=== PATIENT | female | born 1945 | race Caucasian/White ===

== ENCOUNTER 2017-07-24 10:59 | Emergency (ER) | payer OTHER ==
[2017-07-24] MEDS ORDERED: FENTANYL CITR 100 MCG/2 ML ONE (11:15)
[2017-07-24] MEDS ORDERED: ONDANSETRON 4 MG/2 ML VIAL ONE (11:15)
[2017-07-24] MEDS ORDERED: PROPOFOL 0 MG/0 ML VIAL IV ONE (11:15)
[2017-07-24] MEDS ORDERED: PROPOFOL 200 MG/20 ML VIAL IV ONE (11:16)
[2017-07-24] MEDS ORDERED: NA CHLORIDE 0.9% 1,000 ML ONE (11:50)
--- NOTE | 2017-07-24 12:04 | RAD REPORT ---
EXAM DESCRIPTION: Shoulder Right 2 View - 07/24/2017 11:32 am CLINICAL HISTORY: Shoulder pain, dislocation COMPARISON: None. TECHNIQUE: Internal and external rotation views of the right shoulder were obtained. FINDINGS: There is humeral head dislocation medial and inferior to the glenoid. This is a classic lo cation for anterior dislocation. No humeral head fracture or deformity seen. No fracture or deformity of the bony glenoid. AC joint is normal. IMPRESSION: Anterior dislocation of the humeral head. No fracture identified.
--- NOTE | 2017-07-24 12:44 | RAD REPORT ---
EXAM DESCRIPTION: RAD - Shoulder 1 View - 07/24/2017 12:22 pm CLINICAL HISTORY: Right shoulder pain FINDINGS: The previously described dislocation appears reduced. No fracture is seen
--- NOTE | 2017-07-24 12:53 | EDPHYS ---
Physician Documentation [facility] Name: Cleopatra Kwan Age: 71 yrs Sex: Female : 1945 Arrival Date: 07/24/2017 Time: 10:59 Bed 4 Private MD: ED Physician Brooks Rosario HPI: 07/24 13:48 This 71 yrs old Female presents to ER via EMS with complaints of Right kdr Shoulder Injury. 13:48 The patient or guardian complains of decreased range of motion, deformity, pain, that kdr is acute, swelling, tenderness, weakness. right shoulder. Context: The problem was sustained at home, resulted from a fall, while walking, The patient experiences decreased range of motion, The patient notes a deformity, an anterior fullness, a deltoid step-off. Onset: The symptoms/episode began/occurred suddenly, just prior to arrival. Modifying factors: the symptoms are alleviated by nothing. The symptoms are aggravated by movement, rotation of arm. Associated signs and symptoms: The patient has no apparent associated signs or symptoms. Severity of symptoms: At their worst the symptoms were moderate, severe, just prior to arrival, in the emergency department the symptoms are unchanged. Treatment prior to arrival includes: no previous treatment. The patient has not experienced similar symptoms in the past. The patient has not recently seen a physician. Historical: - Allergies: 11:04 amoxicillin trihydrate; hj 11:04 potassium clavulanate; hj - Home Meds: 11:04 pregabalin Oral 1 cap every 8 hours [Active]; senna 8.6 mg Oral cap 2 caps once daily hj [Active]; - PMHx: 11:04 None; hj - PSHx: 11:04 Appendectomy; R leg surgery; hj - Immunization history:: Adult Immunizations up to date. - Social history:: Smoking status: Patient/guardian denies using tobacco, Patient/guardian denies using alcohol. - Ebola Screening: : Patient negative for fever greater than or equal to 101.5 degrees Fahrenheit, and additional compatible Ebola Virus Disease symptoms Patient denies exposure to infectious person Patient denies travel to an Ebola-affected area in the 21 days before illness onset. ROS: 13:48 Constitutional: Negative for fever, chills, and weight loss, Eyes: Negative for injury, kdr pain, redness, and discharge, ENT: Negative for injury, pain, and discharge, Neck: Negative for injury, pain, and swelling. 13:48 Neuro: Negative for headache, weakness, numbness, tingling, and seizure activity. Psych: Negative for depression, anxiety, suicide ideation, homicidal ideation, and hallucinations. 13:48 Skin: Positive for abrasion(s), of the right knee. Exam: 13:50 Constitutional: This is a well developed, well nourished patient who is awake, alert, kdr and in no acute distress. Head/Face: Normocephalic, atraumatic. Eyes: Pupils equal round and reactive to light, extra-ocular motions intact. Lids and lashes normal. Conjunctiva and sclera are non-icteric and not injected. Cornea within normal limits. Periorbital areas with no swelling, redness, or edema. Neck: Trachea midline, no thyromegaly or masses palpated, and no cervical lymphadenopathy. Supple, full range of motion without nuchal rigidity, or vertebral point tenderness. No Meningismus. Chest/axilla: Normal chest wall appearance and motion. Nontender with no deformity. No lesions are appreciated. Cardiovascular: Regular rate and rhythm with a normal S1 and S2. No gallops, murmurs, or rubs. Normal PMI, no JVD. No pulse deficits. Respiratory: Lungs have equal breath sounds bilaterally, clear to auscultation and percussion. No rales, rhonchi or wheezes noted. No increased work of breathing, no retractions or nasal flaring. 13:50 Musculoskeletal/extremity: Extremities: all appear grossly normal, with no appreciated pain with palpation, noted in the anterior aspect of right shoulder and posterior aspect of right shoulder: decreased ROM, pain, swelling, tenderness, Circulation is intact in all extremities. Sensation intact. Joints: All joints are normal except the right shoulder displays deformity, dislocation, limited range of motion, pain at rest. Vital Signs: 11:07 BP 131 / 61; Pulse 79; Resp 18; Temp 98.1(TE); Pulse Ox 99% on R/A; Weight 54.88 kg; hj Height 5 ft. 4 in. (162.56 cm); Pain 7/10; 12:00 BP 136 / 78; Pulse 79; Resp 18; Pulse Ox 100% on R/A; hj 13:02 BP 128 / 53; Pulse 61; Resp 18; Pulse Ox 100% on R/A; hj 14:33 BP 122 / 67; Pulse 65; Resp 18; Pulse Ox 100% on R/A; hj 11:07 Body Mass Index 20.77 (54.88 kg, 162.56 cm) hj Procedures: 13:50 Splinting: using Shoulder immobilizer. applied by myself. tech. nurse. Moderate kdr sedation: Pre-procedure assessment: the patient has been NPO 2 hour(s) prior to arrival, ASA physical classification: I - healthy, no underlying organic disease, Airway assessment: able to hyperextend neck, Mallampati classification of tongue size: II - faucial pillars and soft palate can be visualized, but uvula is masked by the base of the tongue, Monitoring during procedure: school lunch monitor, continuous pulse oximetry, nurse at bedside at all times, Medications employed: Fentanyl, Propofol, Post-procedure assessment: the patient is mildly sedated. MDM: 12:53 Patient medically screened. kdr 13:54 Data reviewed: vital signs, nurses notes, radiologic studies. kdr 07/24 11:06 Order name: Shoulder Right (2 View) XRAY; Complete Time: 12:09 kdr 07/24 12:21 Order name: Shoulder 1 View; Complete Time: 12:52 EDMS 07/24 13:00 Order name: Humerus Right XRAY kdr Administered Medications: 11:09 Drug: fentaNYL (PF) 50 mcg Route: IVP; Site: left antecubital; hj 13:03 Follow up: Response: No adverse reaction; Pain is decreased hj 11:09 Drug: Zofran 4 mg Route: IVP; Site: left antecubital; hj 13:03 Follow up: Response: Nausea is decreased hj 11:34 Drug: fentaNYL (PF) 50 mcg Route: IVP; Site: left antecubital; hj 13:04 Follow up: Response: No adverse reaction; Pain is decreased hj 12:00 Drug: Propofol 130 mg Route: IVP; Site: left antecubital; hj 13:04 Follow up: Response: No adverse reaction hj 13:01 Drug: Redfox 10 mg-325 mg 1 tabs Route: PO; aj 13:04 Follow up: Response: No adverse reaction; Pain is decreased hj Disposition: 07/24/17 12:53 Discharged to Home. Impression: Other dislocation of right shoulder joint, Unspecified dislocation of right shoulder joint. - Condition is Stable. - Discharge Instructions: Shoulder Dislocation, [id number]. - Prescriptions for Tylenol- Codeine #3 300-30 mg Oral Tablet - take 2 tablets by ORAL route every 4-6 hours As needed You may take one or two tablets every four to six hours as needed for pain; 16 tablet. - Medication Reconciliation Form, Thank You Letter, Prescription Opioid Use form. - Follow up: Private Physician; When: 2 - 3 days; Reason: If symptoms return, Further diagnostic work-up, Recheck today's complaints, Continuance of care, Re-evaluation by your physician. - Problem is new. - Symptoms have improved. - Notes: You may need a CT or MRI of your arm if you continue to have pain. Critical care time excluding procedures: 13:54 Critical care time: Bedside Care: 30 minutes, Family Intervention: 10 minutes. Total kdr time: 40 minutes Signatures: Dispatcher [employer] [facility] Stefany Rm RN RN aj Rittger, Kevin, MD MD kdr Joaquin, Henry, RN RN hj Corrections: (The following items were deleted from the chart) 12:21 12:11 Shoulder Right 2 View+RAD.[email or web address].[email or web address] ordered. [facility] 14:34 12:53 07/24/2017 12:53 Discharged to Home. Impression: Other dislocation of right hj shoulder joint; Unspecified dislocation of right shoulder joint. Condition is Stable. Forms are Medication Reconciliation Form, Thank You Letter, Antibiotic Education, Prescription Opioid Use. Follow up: Private Physician; When: 2 - 3 days; Reason: If symptoms return, Further diagnostic work-up, Recheck today's complaints, Continuance of care, Re-evaluation by your physician. Problem is new. Symptoms have improved. kdr
--- NOTE | 2017-07-24 12:53 | ER ---
Nurse's Notes [facility] Name: Cleopatra Kwan Age: 71 yrs Sex: Female : 1945 Arrival Date: 07/24/2017 Time: 10:59 Bed 4 Private MD: Diagnosis: Other dislocation of right shoulder joint;Unspecified dislocation of right shoulder joint Presentation: 07/24 10:59 Presenting complaint: EMS states: was walking along [address] when pt tripped on her legs and fell and possibly dislocated her shoulder, denies hitting head or LOC; happened 15 mins FERRULER; complaints of R shoulder pain, L wrist pain and R knee pain; V/S BP- 122/63; HR- 85; bilateral pulses on upper extremities palpable and bounding;. Transition of care: patient was not received from another setting of care. Onset of symptoms was July 24, 2017. Risk Assessment: Do you want to hurt yourself or someone else? Patient reports no desire to harm self or others. Initial Sepsis Screen: Does the patient meet any 2 criteria? No. Patient's initial sepsis screen is negative. Does the patient have a suspected source of infection? No. Patient's initial sepsis screen is negative. Care prior to arrival: None. 10:59 Method Of Arrival: EMS: [facility] 10:59 Acuity: CHAD 4 hj Triage Assessment: 11:05 General: Appears in no apparent distress. uncomfortable, Behavior is calm, cooperative, hj appropriate for age. Pain: Complains of pain in anterior aspect of right shoulder. EENT: No signs and/or symptoms were reported regarding the EENT system. Neuro: Level of Consciousness is awake, alert, obeys commands, Oriented to person, place, time, situation, Appropriate for age. Cardiovascular: Capillary refill < 3 seconds Patient's skin is warm and dry. Respiratory: Airway is patent Respiratory effort is even, unlabored, Respiratory pattern is symmetrical. GI: No signs and/or symptoms were reported involving the gastrointestinal system. : No signs and/or symptoms were reported regarding the genitourinary system. Derm: No signs and/or symptoms reported regarding the dermatologic system. Musculoskeletal: Reports pain in anterior aspect of right shoulder, L wrist, R knee. Injury Description: Abrasion. Historical: - Allergies: 11:04 amoxicillin trihydrate; hj 11:04 potassium clavulanate; hj - Home Meds: 11:04 pregabalin Oral 1 cap every 8 hours [Active]; senna 8.6 mg Oral cap 2 caps once daily hj [Active]; - PMHx: 11:04 None; hj - PSHx: 11:04 Appendectomy; R leg surgery; hj - Immunization history:: Adult Immunizations up to date. - Social history:: Smoking status: Patient/guardian denies using tobacco, Patient/guardian denies using alcohol. - Ebola Screening: : Patient negative for fever greater than or equal to 101.5 degrees Fahrenheit, and additional compatible Ebola Virus Disease symptoms Patient denies exposure to infectious person Patient denies travel to an Ebola-affected area in the 21 days before illness onset. Screenin:05 Abuse screen: Denies threats or abuse. Denies injuries from another. Nutritional hj screening: No deficits noted. Tuberculosis screening: No symptoms or risk factors identified. Fall Risk Fall in past 12 months (25 points). Assessment: 11:04 General: Appears in no apparent distress. uncomfortable, Behavior is calm, cooperative, hj appropriate for age. Pain: Complains of pain in right arm and anterior aspect of right shoulder. Neuro: Level of Consciousness is awake, alert, obeys commands, Oriented to person, place, time, situation, Appropriate for age. Cardiovascular: Capillary refill < 3 seconds Patient's skin is warm and dry. Respiratory: Airway is patent Respiratory effort is even, unlabored, Respiratory pattern is regular, symmetrical. GI: No signs and/or symptoms were reported involving the gastrointestinal system. : No signs and/or symptoms were reported regarding the genitourinary system. EENT: No signs and/or symptoms were reported regarding the EENT system. Derm: No signs and/or symptoms reported regarding the dermatologic system. Musculoskeletal: Reports pain in right arm and anterior aspect of right shoulder. 12:00 Reassessment: Patient and/or family updated on plan of care and expected duration. Pain hj level reassessed. Patient is alert, oriented x 3, equal unlabored respirations, skin warm/dry/pink. for R shoulder closed reduction;. 12:10 Reassessment: consent signed; pt prepped; medicated with propofol as ordered;. hj Reassessment: Patient and/or family updated on plan of care and expected duration. Pain level reassessed. Patient is alert, oriented x 3, equal unlabored respirations, skin warm/dry/pink. pt tolerated the procedure; post anesthetic monitoring in paper;. 13:02 Reassessment: Patient and/or family updated on plan of care and expected duration. Pain hj level reassessed. Patient is alert, oriented x 3, equal unlabored respirations, skin warm/dry/pink. Patient states feeling better. Patient states symptoms have improved. Vital Signs: 11:07 BP 131 / 61; Pulse 79; Resp 18; Temp 98.1(TE); Pulse Ox 99% on R/A; Weight 54.88 kg; hj Height 5 ft. 4 in. (162.56 cm); Pain 7/10; 12:00 BP 136 / 78; Pulse 79; Resp 18; Pulse Ox 100% on R/A; hj 13:02 BP 128 / 53; Pulse 61; Resp 18; Pulse Ox 100% on R/A; hj 14:33 BP 122 / 67; Pulse 65; Resp 18; Pulse Ox 100% on R/A; hj 11:07 Body Mass Index 20.77 (54.88 kg, 162.56 cm) ED Course: 10:59 Patient arrived in ED. hj 10:59 Brooks Rosario MD is Attending Physician. kdr 11:02 Triage completed. hj 11:07 Arm band placed on left wrist. hj 11:07 Patient has correct armband on for positive identification. Bed in low position. Call hj light in reach. Side rails up X2. 11:08 Inserted saline lock: 20 gauge in left antecubital area, using aseptic technique. Blood aj collected. 11:09 Roel Owens, DARRYL is Primary Nurse. hj 11:31 X-ray completed. Portable x-ray completed in exam room. Patient tolerated procedure jb2 well. 11:32 Shoulder Right (2 View) XRAY In Process Unspecified. EDMS 12:19 X-ray completed. Portable x-ray completed in exam room. Patient tolerated procedure mh1 well. 12:21 Shoulder 1 View In Process Unspecified. EDMS 13:31 Humerus Right XRAY In Process Unspecified. EDMS 14:32 No provider procedures requiring assistance completed. IV discontinued, intact, hj bleeding controlled, No redness/swelling at site. Pressure dressing applied. Administered Medications: 11:09 Drug: fentaNYL (PF) 50 mcg Route: IVP; Site: left antecubital; hj 13:03 Follow up: Response: No adverse reaction; Pain is decreased hj 11:09 Drug: Zofran 4 mg Route: IVP; Site: left antecubital; hj 13:03 Follow up: Response: Nausea is decreased hj 11:34 Drug: fentaNYL (PF) 50 mcg Route: IVP; Site: left antecubital; hj 13:04 Follow up: Response: No adverse reaction; Pain is decreased hj 12:00 Drug: Propofol 130 mg Route: IVP; Site: left antecubital; hj 13:04 Follow up: Response: No adverse reaction hj 13:01 Drug: Struthers 10 mg-325 mg 1 tabs Route: PO; aj 13:04 Follow up: Response: No adverse reaction; Pain is decreased Outcome: 12:53 Discharge ordered by MD. kdr 14:33 Discharged to home via wheelchair, with family. hj 14:33 Condition: stable 14:33 Discharge instructions given to patient, family, Instructed on discharge instructions, follow up and referral plans. medication usage, Demonstrated understanding of instructions, follow-up care, medications, Prescriptions given X 1. 14:34 Patient left the ED. Signatures: Dispatcher [employer] EDMS Stefany Rm RN RN aj Rittger, Kevin, MD MD kdr Buechter, Jesse jb2 Harvey, Martha 1 Roel Owens RN RN Corrections: (The following items were deleted from the chart) 11:08 10:59 Presenting complaint: EMS states: was walking along [facility] [facility] [address] when pt tripped on hj her legs and fell and possibly dislocated her shoulder, denies hitting head or LOC; happened 15 mins FERRULER; V/S BP- 122/63; HR- 85; bilateral pulses on upper extremities palpable and bounding; hj 12:15 12:00 Propofol 100 mg IVP in left antecubital hj hj
[2017-07-24] MEDS ORDERED: HYDROCODONE/APAP 10/325 TAB ONE (13:01)
--- NOTE | 2017-07-24 13:49 | RAD REPORT ---
EXAM DESCRIPTION: RAD - Humerus Right - 07/24/2017 1:31 pm CLINICAL HISTORY: Shoulder dislocation with subsequent reduction and persistent pain COMPARISON: July 24 post reduction film, July 24 initial assessment FINDINGS: Humeral head remains normally positioned. Acromial humeral joint space is normal. No AC kierra int abnormality identified. No glenoid fracture seen and no bony defect of the humeral head identifia ble on plain film. More distally shaft of the humerus and lateral view of the elbow joint are unremar kable. No foreign body or other soft tissue abnormality. IMPRESSION: Post reduction right shoulder imaging shows no suspicious or unexpected finding.
== END 2017-07-24 14:34 | disposition home or self-care (01) ==
LOC: ER 10:59
PROC: 2W3AXYZ Immobilization of Right Upper Arm using Other Device (ICD-10-PCS; principal; 2017-07-24)
DX: S43.004A Unspecified dislocation of right shoulder joint, initial encounter (principal); S80.211A Abrasion, right knee, initial encounter; Z88.1 Allergy status to other antibiotic agents; Z88.8 Allergy status to other drugs, medicaments and biological substances; W01.0XXA Fall on same level from slipping, tripping and stumbling without subsequent striking against object, initial encounter; Y92.480 Sidewalk as the place of occurrence of the external cause
CPT/HCPCS: 29799; 73020; 73030; 73060; 96374; 96375; 99285; J2405; J3010; J7030

== ENCOUNTER 2019-03-24 11:29 | Observation (INO) | payer OTHER ==
[2019-03-24] MEDS ORDERED: ASPIRIN 81 MG CHEWABLE TABLET ONE (12:29)
[2019-03-24] MEDS ORDERED: NA CHLORIDE 0.9% 1,000 ML ONE (12:30)
[2019-03-24] MEDS ORDERED: FAMOTIDINE 20 MG/2 ML VIAL IV ONE (12:30)
[2019-03-24 12:38] LABS: Absolute Lymphocytes (CBC) 1.9 K/uL (0.7-4.9); Basophils % 0.4 % (0-1.3); Hematocrit 42.6 % (36.0-45.0); Lymphocytes % 22.2 % (15.3-44.8); MPV 8.3 fL (7.6-11.3); RBC Red Blood Cell Count 4.45 M/uL (3.86-4.86)
[2019-03-24 12:41] LABS: Protime INR 0.89
[2019-03-24 12:55] LABS: ALT/SGPT 22 U/L (12-78); AST/SGOT 24 U/L (15-37); Albumin 4.1 g/dL (3.4-5.0); Alkaline Phosphatase 97 U/L (45-117); BUN Blood Urea Nitrogen 11 mg/dL (7-18); Bicarbonate 25 mmol/L (21-32); Bilirubin Direct 0.1 mg/dL (0-0.2); Bilirubin Total 0.5 mg/dL (0.2-1.0); Glucose Level 91 mg/dL (74-106); Lipase 82 U/L (73-393); Magnesium 2.4 mg/dL (1.8-2.4); NT PRO-BNP 112 pg/mL (<125); Protein, Total 7.1 g/dL (6.4-8.2); Sodium Level 138 mmol/L (136-145); Troponin (Emerg Dept Use Only) < 0.02 ng/mL (0.0-0.045)
--- NOTE | 2019-03-24 13:03 | RAD REPORT ---
EXAM DESCRIPTION: RAD - Chest Single View - 03/24/2019 12:55 pm CLINICAL HISTORY: CHEST PAIN Chest pain. COMPARISON: Chest Single View dated 11/22/2016 FINDINGS: Portable technique limits examination quality. The lungs are grossly clear. The heart is normal in size. No displaced fractures. IMPRESSION: No acute intrathoracic process suspected.
--- NOTE | 2019-03-24 13:28 | RAD REPORT ---
EXAM DESCRIPTION: CT - Angio Aorta For Dissection - 03/24/2019 1:10 pm CLINICAL HISTORY: . Chest and abdominal pain COMPARISON: None TECHNIQUE: Computed tomography angiography of the chest, abdomen pelvis were obtained. 100 cc Isovue 370 was administered intravenously. Coronal and sagittal reconstruction were performed. MIP 3D reconstruction was performed All CT scans are performed using dose optimization technique as appropriate and may include automated exposure control or mA/KV adjustment according to patient size. FINDINGS: An aortic dissection is not seen. An aortic aneurysm is not displayed. The celiac, SMA and ALFREDA are patent . A lung consolidation is not present. A pericardial effusion is not seen. A pleural effusion is not n oted. The liver,spleen, pancreas adrenals kidneys demonstrate no significant abnormality. The gallbladder is distended. Gallbladder wall is thickened. IMPRESSION: Negative for an aortic dissection. Distended gallbladder with a thickened wall probably indicating cholecystitis
--- NOTE | 2019-03-24 13:29 | RAD REPORT ---
EXAM DESCRIPTION: US - Abdomen Exam Limited - 03/24/2019 1:02 pm CLINICAL HISTORY: Abdominal pain. COMPARISON: None. FINDINGS: The gallbladder is distended. The wall is mildly thickened. Septation seen. Small echogeni c structure probably stone. The biliary tree is normal caliber IMPRESSION: Cholelithiasis Distended gallbladder with a thickened wall probably cholecystitis
--- NOTE | 2019-03-24 13:30 | EDPHYS ---
Physician Documentation [facility] Name: Cleopatra Kwan Age: 73 yrs Sex: Female : 1945 Arrival Date: 03/24/2019 Time: 11:31 Bed 16 Private MD: Carlos Busch ED Physician Selvin Guillen HPI: 03/24 12:08 This 73 yrs old Female presents to ER via Ambulatory with complaints of Chest blaise Pain, Back Pain, Shoulder Pain. 12:08 The patient or guardian reports chest pain that is located primarily in the substernal blaise area, epigastric area, anterior chest wall. Onset: 2 day(s) ago. The pain radiates to the right shoulder, Associated signs and symptoms: The patient has no apparent associated signs or symptoms. The chest pain is described as a heaviness, a pressure. Severity of pain: At its worst the pain was mild moderate in the emergency department the pain is unchanged. The patient has not experienced similar symptoms in the past. Historical: - Allergies: 15:24 amoxicillin trihydrate; bp 15:24 potassium clavulanate; bp - Home Meds: 15:24 pregabalin Oral 1 cap every 8 hours [Active]; senna 8.6 mg Oral cap 2 caps once daily bp [Active]; - PSHx: 11:37 Appendectomy; R leg surgery; ss - Immunization history:: Adult Immunizations up to date. - Coronavirus screen:: The patient has NOT traveled to [place] in the past 14 days. Proceed with normal triage process as indicated. - Social history:: Smoking status: Patient denies any tobacco usage or history of. - Family history:: not pertinent. - Ebola Screening: : Patient denies exposure to infectious person Patient denies travel to an Ebola-affected area in the 21 days before illness onset. ROS: 12:08 Constitutional: Negative for fever, chills, and weight loss, Eyes: Negative for injury, blaise pain, redness, and discharge, ENT: Negative for injury, pain, and discharge, Neck: Negative for injury, pain, and swelling, Respiratory: Negative for shortness of breath, cough, wheezing, and pleuritic chest pain, Abdomen/GI: Negative for abdominal pain, nausea, vomiting, diarrhea, and constipation, Back: Negative for injury and pain, : Negative for injury, bleeding, discharge, and swelling, MS/Extremity: Negative for injury and deformity, Skin: Negative for injury, rash, and discoloration, Neuro: Negative for headache, weakness, numbness, tingling, and seizure, Psych: Negative for depression, anxiety, suicide ideation, homicidal ideation, and hallucinations, Allergy/Immunology: Negative for hives, rash, and allergies, Endocrine: Negative for neck swelling, polydipsia, polyuria, polyphagia, and marked weight changes, Hematologic/Lymphatic: Negative for swollen nodes, abnormal bleeding, and unusual bruising. 12:08 Cardiovascular: Positive for chest pain. 12:08 Abdomen/GI: Positive for abdominal pain, of the right upper quadrant. Exam: 12:08 Constitutional: This is a well developed, well nourished patient who is awake, alert, blaise and in no acute distress. Head/Face: Normocephalic, atraumatic. Eyes: Pupils equal round and reactive to light, extra-ocular motions intact. Lids and lashes normal. Conjunctiva and sclera are non-icteric and not injected. Cornea within normal limits. Periorbital areas with no swelling, redness, or edema. ENT: Nares patent. No nasal discharge, no septal abnormalities noted. Tympanic membranes are normal and external auditory canals are clear. Oropharynx with no redness, swelling, or masses, exudates, or evidence of obstruction, uvula midline. Mucous membranes moist. Neck: Trachea midline, no thyromegaly or masses palpated, and no cervical lymphadenopathy. Supple, full range of motion without nuchal rigidity, or vertebral point tenderness. No Meningismus. Chest/axilla: Normal chest wall appearance and motion. Nontender with no deformity. No lesions are appreciated. Cardiovascular: Regular rate and rhythm with a normal S1 and S2. No gallops, murmurs, or rubs. Normal PMI, no JVD. No pulse deficits. Respiratory: Lungs have equal breath sounds bilaterally, clear to auscultation and percussion. No rales, rhonchi or wheezes noted. No increased work of breathing, no retractions or nasal flaring. Back: No spinal tenderness. No costovertebral tenderness. Full range of motion. Female : Normal external genitalia. Skin: Warm, dry with normal turgor. Normal color with no rashes, no lesions, and no evidence of cellulitis. MS/ Extremity: Pulses equal, no cyanosis. Neurovascular intact. Full, normal range of motion. Neuro: Awake and alert, GCS 15, oriented to person, place, time, and situation. Cranial nerves II-XII grossly intact. Motor strength 5/5 in all extremities. Sensory grossly intact. Cerebellar exam normal. Normal gait. Psych: Awake, alert, with orientation to person, place and time. Behavior, mood, and affect are within normal limits. 12:08 Abdomen/GI: Inspection: abdomen appears normal, Bowel sounds: normal, Palpation: mild abdominal tenderness, in the right upper quadrant. Vital Signs: 11:37 BP 177 / 88; Pulse 108; Resp 16; Temp 98.7(TE); Pulse Ox 97% on R/A; Weight 54.43 kg; ss Height 5 ft. 4 in. (162.56 cm); Pain 5/10; 12:52 BP 144 / 82; Pulse 94; Resp 16; Pulse Ox 99% ; bp 13:45 BP 139 / 69; Pulse 83; Resp 18 S; Pulse Ox 100% on R/A; ca1 14:00 BP 142 / 84; Pulse 67; Resp 16; Pulse Ox 99% ; bp 14:36 BP 120 / 75; Pulse 81; Resp 17 S; Pulse Ox 100% on R/A; ca1 11:37 Body Mass Index 20.60 (54.43 kg, 162.56 cm) ss MDM: 11:39 Patient medically screened. [facility] 12:15 Data reviewed: vital signs, nurses notes, lab test result(s), EKG, radiologic studies, [facility] CT scan, plain films, ultrasound. 03/24 12:06 Order name: Basic Metabolic Panel; Complete Time: 13:16 [facility] 03/24 12:06 Order name: CBC with Diff [facility] 03/24 12:06 Order name: LFT's; Complete Time: 13:16 [facility] 03/24 12:06 Order name: Magnesium; Complete Time: 13:16 [facility] 03/24 12:06 Order name: NT PRO-BNP; Complete Time: 13:16 [facility] 03/24 12:06 Order name: PT-INR [facility] 03/24 12:06 Order name: Troponin (emerg Dept Use Only) [facility] 03/24 12:06 Order name: XRAY Chest (1 view) [facility] 03/24 12:06 Order name: Lipase; Complete Time: 13:16 [facility] 03/24 12:06 Order name: US Abdomen Limited [facility] 03/24 12:39 Order name: CBC with Automated Diff; Complete Time: 13:16 [facility] 03/24 12:48 Order name: Protime (+INR); Complete Time: 13:16 [facility] 03/24 13:28 Order name: Urine Dipstick--Ancillary (enter results) 03/24 13:50 Order name: Urine Dipstick-Ancillary [facility] 03/24 12:06 Order name: EKG; Complete Time: 12:08 [facility] 03/24 12:06 Order name: Cardiac monitoring; Complete Time: 12:10 [facility] 03/24 12:06 Order name: EKG - Nurse/Tech; Complete Time: 12:40 [facility] 03/24 12:06 Order name: IV Saline Lock; Complete Time: 12:40 [facility] 03/24 12:06 Order name: Labs collected and sent; Complete Time: 12:40 [facility] 03/24 12:06 Order name: O2 Per Protocol; Complete Time: 12:06 [facility] 03/24 12:06 Order name: CT Aorta for Dissection [facility] 03/24 13:18 Order name: Echo w/ Doppler [facility] 03/24 13:48 Order name: RAD [facility] 03/24 13:48 Order name: CT [facility] 03/24 12:06 Order name: O2 Sat Monitoring; Complete Time: 12:06 [facility] 03/24 12:06 Order name: Urine Dipstick-Ancillary (obtain specimen); Complete Time: 13:31 [facility] Administered Medications: 12:08 Not Given (Duplicate Order): NS 0.9% 1000 ml IV at 125 ml/hr continuous bp 12:30 Drug: NS 0.9% 1000 ml Route: IV; Rate: 125 ml/hr; Site: left wrist; bp 15:27 Follow up: IV Status: Infusion continued upon admission bp 12:30 Drug: Aspirin 162 mg Route: PO; bp 13:43 Follow up: Response: No adverse reaction bp 12:30 Drug: Pepcid 20 mg Route: IVP; Site: left wrist; bp 13:43 Follow up: Response: No adverse reaction bp 13:37 CANCELLED (Physician Discretion): Zosyn 3.375 grams IVPB once over 60 mins; (mix in NS cp 100 mL) 14:00 Drug: LevaQUIN 500 mg Volume: 100 ml; Route: IVPB; Infused Over: 60 mins; Site: left bp wrist; 15:28 Follow up: IV Status: Completed infusion; IV Intake: 500ml bp Disposition: 03/24/19 13:29 Hospitalization ordered by Carlos Busch for Inpatient Admission. Preliminary diagnosis are Chest pain, unspecified, Cholecystitis, Cholelithiasis. - Bed requested for Telemetry/MedSurg (Inpatient). - Status is Inpatient Admission. bp - Condition is Stable. - Problem is new. - Symptoms have improved. Signatures: Dispatcher [employer] EDMS Julia chahal Selvin Ruano MD MD cha Smirch, Shelby, RN RN ss Selvin Santacruz PA PA cp Aguilar, Jose, RN RN ja Niko Pelayo RN RN bp Corrections: (The following items were deleted from the chart) 13:37 13:18 Zosyn 3.375 grams IVPB once over 60 mins; (mix in NS 100 mL) ordered. [facility] 14:30 13:29 Hospitalization Ordered by Carlos Busch MD for Inpatient Admission. Preliminary bd diagnosis is Chest pain, unspecified; Cholecystitis; Cholelithiasis. Bed requested for Telemetry/MedSurg (Inpatient). Status is Inpatient Admission. Condition is Stable. Problem is new. Symptoms have improved. [facility] 14:51 14:30 03/24/2019 13:29 Hospitalization Ordered by Carlos Busch MD for Inpatient ja1 Admission. Preliminary diagnosis is Chest pain, unspecified; Cholecystitis; Cholelithiasis. Bed requested for Telemetry/MedSurg (Inpatient). Status is Inpatient Admission. Condition is Stable. Problem is new. Symptoms have improved. bd 15:24 11:37 Allergies: No Known Drug Allergies; bp 16:02 14:51 03/24/2019 13:29 Hospitalization Ordered by Carlos Busch MD for Inpatient bp Admission. Preliminary diagnosis is Chest pain, unspecified; Cholecystitis; Cholelithiasis. Bed requested for Telemetry/MedSurg (Inpatient). Status is Inpatient Admission. Condition is Stable. Problem is new. Symptoms have improved. ja1
--- NOTE | 2019-03-24 13:30 | ER ---
Nurse's Notes [facility] Name: Cleopatra Kwan Age: 73 yrs Sex: Female : 1945 Arrival Date: 03/24/2019 Time: 11:31 Bed 16 Private MD: Carlos Busch Diagnosis: Chest pain, unspecified;Cholecystitis;Cholelithiasis Presentation: 03/24 11:36 Presenting complaint: Patient states: sharp chest pain that began this morning. pt ss reports that now she is having pain in her RUQ, shoulder blade and back. Transition of care: patient was not received from another setting of care. Onset of symptoms was March 24, 2019. Risk Assessment: Do you want to hurt yourself or someone else? Patient reports no desire to harm self or others. Initial Sepsis Screen: Does the patient meet any 2 criteria? HR > 90 bpm. Does the patient have a suspected source of infection? No. Patient's initial sepsis screen is negative. Care prior to arrival: None. 11:36 Method Of Arrival: Ambulatory ss 11:36 Acuity: CHAD 2 ss Triage Assessment: 11:45 General: Appears in no apparent distress. comfortable, Behavior is cooperative, bp appropriate for age, anxious. Pain: Complains of pain in back and abdomen. EENT: No deficits noted. Neuro: No deficits noted. Cardiovascular: Rhythm is sinus tachycardia. Respiratory: No deficits noted. GI: No signs and/or symptoms were reported involving the gastrointestinal system. : No signs and/or symptoms were reported regarding the genitourinary system. Derm: No deficits noted. Musculoskeletal: No deficits noted. Historical: - Allergies: 15:24 amoxicillin trihydrate; bp 15:24 potassium clavulanate; bp - Home Meds: 15:24 pregabalin Oral 1 cap every 8 hours [Active]; senna 8.6 mg Oral cap 2 caps once daily bp [Active]; - PSHx: 11:37 Appendectomy; R leg surgery; ss - Immunization history:: Adult Immunizations up to date. - Coronavirus screen:: The patient has NOT traveled to [place] in the past 14 days. Proceed with normal triage process as indicated. - Social history:: Smoking status: Patient denies any tobacco usage or history of. - Family history:: not pertinent. - Ebola Screening: : Patient denies exposure to infectious person Patient denies travel to an Ebola-affected area in the 21 days before illness onset. Screenin:45 Abuse screen: Denies threats or abuse. Denies injuries from another. Nutritional bp screening: No deficits noted. Tuberculosis screening: No symptoms or risk factors identified. Fall Risk None identified. Assessment: 11:45 General: SEE TRIAGE NOTE. Pain: Pain radiates to back Pain began 1 day ago. bp 12:52 Reassessment: U/S AT B/S. bp 13:16 Reassessment: PT RETURNED FROM RADIOLOGY. bp 14:00 Reassessment: U/S AT B/S FOR ECHO. bp 15:01 Reassessment: ADMIT ON HOLD FOR PHYSICIAN C/S. bp 15:15 Reassessment: SURGERY AT B/S. PT FOR KRUNAL TOMORROW. ADMIT IN PROCESS. bp Vital Signs: 11:37 BP 177 / 88; Pulse 108; Resp 16; Temp 98.7(TE); Pulse Ox 97% on R/A; Weight 54.43 kg; ss Height 5 ft. 4 in. (162.56 cm); Pain 5/10; 12:52 BP 144 / 82; Pulse 94; Resp 16; Pulse Ox 99% ; bp 13:45 BP 139 / 69; Pulse 83; Resp 18 S; Pulse Ox 100% on R/A; ca1 14:00 BP 142 / 84; Pulse 67; Resp 16; Pulse Ox 99% ; bp 14:36 BP 120 / 75; Pulse 81; Resp 17 S; Pulse Ox 100% on R/A; ca1 11:37 Body Mass Index 20.60 (54.43 kg, 162.56 cm) ED Course: 11:31 Patient arrived in ED. ag5 11:32 Carlos Busch MD is Private Physician. ag5 11:37 Triage completed. ss 11:37 Arm band placed on right wrist. ss 11:39 Selvin Guillen MD is Attending Physician. [facility] 11:45 Patient has correct armband on for positive identification. Bed in low position. Call bp light in reach. Side rails up X2. Adult w/ patient. monitoring tech on. Pulse ox on. NIBP on. 11:48 Niko Pelayo, DARRYL is Primary Nurse. bp 12:30 Inserted saline lock: 22 gauge in left wrist, using aseptic technique. bp 13:28 Carlos Busch MD is Hospitalizing Provider. blaise 13:34 Abdomen Limited In Process Unspecified. EDMS 14:01 Echocardiogram with doppler completed by network technical analyst. tc 16:00 No provider procedures requiring assistance completed. Patient admitted, IV remains in bp place. Patient maintains SpO2 saturation greater than 95% on room air. Administered Medications: 12:08 Not Given (Duplicate Order): NS 0.9% 1000 ml IV at 125 ml/hr continuous bp 12:30 Drug: NS 0.9% 1000 ml Route: IV; Rate: 125 ml/hr; Site: left wrist; bp 15:27 Follow up: IV Status: Infusion continued upon admission bp 12:30 Drug: Aspirin 162 mg Route: PO; bp 13:43 Follow up: Response: No adverse reaction bp 12:30 Drug: Pepcid 20 mg Route: IVP; Site: left wrist; bp 13:43 Follow up: Response: No adverse reaction bp 13:37 CANCELLED (Physician Discretion): Zosyn 3.375 grams IVPB once over 60 mins; (mix in NS cp 100 mL) 14:00 Drug: LevaQUIN 500 mg Volume: 100 ml; Route: IVPB; Infused Over: 60 mins; Site: left bp wrist; 15:28 Follow up: IV Status: Completed infusion; IV Intake: 500ml bp Intake: 15:28 IV: 500ml; Total: 500ml. bp Outcome: 13:29 Decision to Hospitalize by Provider. blaise 16:01 Admitted to Med/surg accompanied by tech, family with patient, via wheelchair, room bp 210, with chart, Report called to JUAN ANDREWS 16:01 Condition: stable 16:01 Instructed on the need for admit. 16:02 Patient left the ED. bp Signatures: Dispatcher [employer] EDND Selvin Guillen MD MD cha Smirch, Shelby RN RN ss Chasidy Zimmer, bowling ball molder EKG Niko Cueto RN RN bp Acob, Cheryl, RN RN ca1 Gaskin, Ajare ag5 Selvin Santacruz cp Corrections: (The following items were deleted from the chart) 15:24 11:37 Allergies: No Known Drug Allergies; bp
[2019-03-24 13:49] LABS: Urine Blood TRACE (NEG); Urine Glucose NEGATIVE (NEG); Urine Protein NEGATIVE (NEG); Urine Specific Gravity 1.015 (1.005-1.030)
[2019-03-24] MEDS ORDERED: Levofloxacin500mg IV 500 MG/100 ML BAG IV ONE (14:52)
--- NOTE | 2019-03-24 15:20 | ECHO ---
HEIGHT: 5 ft 4 in WEIGHT: 120 lb oz DATE OF STUDY: 03/24/[address]: Selvin Guillen MD 2-DIMENSIONAL: YES M.MODE: YES DOPPLER: YES COLOR FLOW: YES TDS: NO PORTABLE: NO DEFINITY: NO BUBBLE STUDY: NO DIAGNOSIS: CHEST PAIN CARDIAC HISTORY: CATHERIZATION: NO SURGERY: NO PROSTHETIC VALVE: NO PACEMAKER: NO MEASUREMENTS (cm) DIASTOLIC (NORMALS) SYSTOLIC (NORMALS) IVSd 0.8 (0.6-1.2) LA Diam 2.7 (1.9-4.0) LVEF 80% LVIDd 4.5 (3.5-5.7) LVIDs 2.3 (2.0-3.5) %FS 48% LVPWd 0.8 (0.6-1.2) Ao Diam 2.6 (2.0-3.7) 2 DIMENSIONAL ASSESSMENT: RIGHT ATRIUM: NORMAL LEFT ATRIUM: NORMAL RIGHT VENTRICLE: NORMAL LEFT VENTRICLE: NORMAL TRICUSPID VALVE: NORMAL MITRAL VALVE: NORMAL PULMONIC VALVE: NORMAL AORTIC VALVE: NORMAL PERICARDIAL EFFUSION: NONE AORTIC ROOT: NORMAL LEFT VENTRICULAR WALL MOTION: NORMAL DOPPLER/COLOR FLOW: PHYSIOLOGIC TRICUSPID REGURGITATION. NORMAL RIGHT VENTRICULAR SYSTOLIC PRESSURE. COMMENTS: NORMAL 2D ECHOCARDIOGRAM WITH DOPPLER. TECHNOLOGIST: Francesco DANG
--- NOTE | 2019-03-24 15:26 | EKG ---
Test Date: 2019-03-24 Test Time: 12:31:13 Office Machine Installer: ANTONY MEASUREMENT RESULTS: Intervals: Rate: 90 ME: 120 QRSD: 72 QT: 352 QTc: 430 [place]: P: 66 ME: 120 QRS: 78 T: 42 INTERPRETIVE STATEMENTS: Sinus rhythm with premature supraventricular complexes Otherwise normal ECG Compared to ECG 11/22/2016 15:15:26 Atrial premature complex(es) now present Sinus tachycardia no longer present Electronically Signed On 03-24-19 15:25:33 RELIEF COOK by Lars Bolaños
[2019-03-24] MEDS ORDERED: MORPHINE 4 MG/ML SYR IV PRN (15:48)
[2019-03-24] MEDS ORDERED: ACETAMINOPHEN 500 MG TAB PO PRN (15:48)
[2019-03-24] MEDS ORDERED: ONDANSETRON 4 MG/2 ML VIAL IV PRN (15:48)
[2019-03-24 16:12] VITALS: BMI 20.5
[2019-03-24] MEDS: NA CHLORIDE 0.9% 1,000 ML IV SCH ×2 (16:14→23:38)
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
[2019-03-24] MEDS: FAMOTIDINE 20 MG/2 ML VIAL IV SCH (20:12)
[2019-03-25 05:50] LABS: Absolute Lymphocytes (CBC) 2.8 K/uL (0.7-4.9); Basophils % 0.6 % (0-1.3); Lymphocytes % 37.4 % (15.3-44.8); MPV 8.7 fL (7.6-11.3); RBC Red Blood Cell Count 4.49 M/uL (3.86-4.86)
[2019-03-25 06:19] LABS: Potassium 3.9 mmol/L (3.5-5.1)
[2019-03-25] MEDS: FAMOTIDINE 20 MG/2 ML VIAL IV SCH ×2 (08:29→19:46)
[2019-03-25] MEDS: NA CHLORIDE 0.9% 1,000 ML IV SCH ×2 (08:31→15:48)
[2019-03-25] MEDS ORDERED: MIDAZOLAM HCL 2 MG/2 ML INJ ONE (12:38)
[2019-03-25] MEDS ORDERED: propofoL 200 MG/20 ML VIAL IV ONE (12:38)
[2019-03-25] MEDS ORDERED: GLYCOPYRROLATE 0.2 MG/ML SYR ONE ×2 (12:39)
[2019-03-25] MEDS ORDERED: LIDOCAINE 2% MPF 5 ML VIAL ONE ×2 (12:39→13:08)
[2019-03-25] MEDS ORDERED: FENTANYL CITR 250 MCG/5 ML ONE (12:39)
[2019-03-25] MEDS ORDERED: ROCURONIUM 50 MG/5 ML VIAL IV ONE (12:51)
[2019-03-25] MEDS ORDERED: ONDANSETRON 4 MG/2 ML VIAL ONE (12:51)
[2019-03-25] MEDS ORDERED: EPHEDRINE SULF 50 MG/ML VIAL ONE (13:35)
[2019-03-25] MEDS ORDERED: NA CHLORIDE 0.9% 1,000 ML ONE (13:35)
--- NOTE | 2019-03-25 13:35 | PN ---
Date of Progress Note: 03/25/2019 Ms. Kwan is a 73, came in with chest pain, was found to have gallstone and cholecystitis. She was c leared by Dr. Bolaños for surgery. Today, she is in normal rhythm. No cardiac complaint. She is maris iting surgery by Dr. Scott. No clinical evidence of congestive heart failure. Normal EKG. Tropo karina is unremarkable. We will await for her surgery and check on her postoperatively. ADITHYA/MOE Voice ID: [id number] Report ID: [id number]
[2019-03-25] MEDS: HYDROMORPHONE HCL 1 MG/ML INJ ONE ×2 (14:34→14:39)
[2019-03-25] MEDS ORDERED: HYDROCODONE/APAP 5/325 MG TAB PO PRN (14:37)
[2019-03-25] MEDS: FENTANYL CITR 100 MCG/2 ML ONE ×2 (14:45→14:50)
[2019-03-25] MEDS ORDERED: Levofloxacin500mg IV 500 MG/100 ML BAG IV SCH (15:00)
[2019-03-25] MEDS ORDERED: ONDANSETRON 4 MG/2 ML VIAL IV PRN (19:07)
--- NOTE | 2019-03-25 21:03 | PN ---
Date of Progress Note: 03/25/2019 History: The patient is seen a couple hours after surgery, complaining of significant nausea, cannot tolerate diet and will be kept overnight on IV fluids and treated symptomatically. The possibility of Dilaudid, fentanyl contributing to the nausea is possible. Abdomen is soft. She will be seen in the morning and disposition will be made depending on her clinical situation. HR/MODL Voice ID: [id number] Report ID: [id number]
[2019-03-26] MEDS: NA CHLORIDE 0.9% 1,000 ML IV SCH ×2 (00:03→08:24)
--- NOTE | 2019-03-26 00:42 | OP ---
Date of Procedure: 03/25/2019 Surgeon: Roel Scott MD Diagnoses: Acute cholecystitis, symptomatic cholelithiasis. Postoperative Diagnoses: Acute cholecystitis, symptomatic cholelithiasis. Procedure: Laparoscopic cholecystectomy. Anesthesia: General plus local. Finding: As above. Indications: This is the case of a 73-year-old patient, comes to us with above diagnosis. Fully exp lained the benefits, alternatives, and risks of laparoscopic, possible open cholecystectomy, which in clude but are not limited to infection, bleeding, damage to adjacent structures, anesthesia complicat ion, cholelithiasis, bile leak, pancreatitis, NC, and even . She also understands this might no t relieve, more than 1 surgical intervention. Patient understood and signed a consent. Description Of Procedure: Patient was brought to the operating room, placed in supine position. Ane sthesia was given without complication. Abdomen was prepped and draped in sterile fashion. Marcaine 0.5% was injected for local anesthetic. Time-out was called. An incision was made in the infraumbi lical region. Incision was carried down to fascia, which was opened under direct vision. Peritoneum was encountered, opened under direct vision. Vicryl #1 placed inside the fascia. Luis Alberto trocar was carefully introduced. No bleeding was obtained. I placed 3 more trocars, 5 mm each one of them in the epigastric, right upper quadrant area under direct visualization. This allowed me to visualize d istended gallbladder and endo needle was placed in that area to deflate the gallbladder so we can man ipulate the gallbladder better. Will also have extensive adhesions coming from the previous open gregorio endectomy and that have to be taken care of. So, we put an Endo needle under direct visualization an d the gallbladder and then removed the needle under direct visualization. Put a grasper in the fundu s of the gallbladder. This allowed me to then address the adhesions next to the gallbladder area and this was done with the help of an Endo Vanessa connected to Bovie cauterizer making sure there were n o enterotomies or gastric damage. After that, we put a grasper in the fundus of the gallbladder, ret racted the gallbladder in the inferolateral fashion exposing the triangle of Calot. At that moment, I proceeded to identify the cystic duct and cystic artery and dissecting circumferentially and a conn ection between those and the gallbladder were clearly identified. I proceeded to ligate those by usi ng at least 3 clips proximal, 1 clip distal, ligation in middle. Same was done with the cystic arter y. No bile leak. No bleeding. The gallbladder was removed from liver using Bovie cauterizer and re moved from abdominal cavity using an EndoCatch through the umbilical incision. The area was inspecte d once again. No bile leak. No bleeding. Clips were intact. At that moment, I proceeded to remove the trocars under direct vision. Deflated the pneumoperitoneum. Closed the fascia with #1 Vicryl, irrigated subcu tissue, closed that with 3-0 chromic and skin with 3-0 chromic. Sponge count and ins trument counts were correct. Patient tolerated the procedure well. Patient was sent to recovery in stable condition. If the patient tolerates diet, I discussed that with the primary doctor. We may able to send her teo e after dinner and if she goes home, after dinner then stay on a soft diet for the rest of the week. No heavy lifting, no more than 20 pounds. We are going to sign home on Tylenol No. 3 q.4 hours p.r.n . pain and Bactrim DS p.o. b.i.d. She was advised to follow with my office in 1 week once again, thi s if Dr. Busch agrees. KHUSHBU/MOE Voice ID: [id number] Report ID: [id number]
[2019-03-26] MEDS: FAMOTIDINE 20 MG/2 ML VIAL IV SCH (08:23)
[2019-03-26 08:58] VITALS: O2SAT 98
--- NOTE | 2019-03-26 09:19 | HP ---
Date of Admission: 03/24/2019 Chief Complaint: Abdominal and chest pain. History Of Present Illness: The patient was sent to the emergency room from my office after calling the morning of admission stating she has had some rather significant mid epigastric and chest discomf ort, which is very unusual for her. She was therefore referred to the emergency room. The patient s tated that she was fine the day before and she rode her bike usual 15-17 miles, felt a little more ti red than usual, and started to having some lower chest discomfort and pain in her abdomen in the righ t upper quadrant, mid epigastric area. It persisted and she presented to the emergency room at which time a diagnosis of cholelithiasis was made. Past History: Patient states she knew she had stones, was told a few years back after an episode jaci t she should have it out. However, she has been basically asymptomatic and has not had any further e valuations. Patient had traumatized fracture of the leg and subsequent cellulitis. However, she has been in remarkably good health for her age, works out significantly. Family History: Noncontributory. Social History: Nonsmoker. Physical Examination: General: Patient is an elderly female in no acute distress when seen. Vital signs: Stable vital signs. Head and Neck: Normocephalic. Pupils equal, reactive and light and accommodation. Fundi negative. Trachea midline. Thyroid not palpable. ENT, negative. Chest: Clear to P and A. Cardiovascular: PMI midclavicular line. Heart: Sounds normal. Peripheral pulses present and equal bilaterally. Abdomen: Minimal tenderness, right upper quadrant, mid epigastric area. No guarding, rebound, tende rness, or rigidity. Bowel sounds hyperactive. Extremities: Slightly dehydrated. Good tone and movement bilateral reflexes. Physiologic: Deferred. Rectal: Deferred. Pelvic: Deferred. Impression: Acute cholecystitis. Plan: The patient will be admitted, placed on IV antibiotics. Surgical consultation will be obtaine d and surgery will probably schedule the next day. HR/MODL Voice ID: [id number]
[2019-03-26 13:00] VITALS: BP 136/67; TEMP 97.8
--- NOTE | 2019-04-22 12:59 | CON ---
Date of Consultation: 04/22/2019 Diagnoses: Epigastric and right upper quadrant pain, acute cholecystitis. History Of Present Illness: This is a case of a 73-year-old patient who comes to the ER complaining of multiple problems including epigastric pain. Patient was seen by the primary doctor, also by an E R physician and eventually determined that it is related to the gallbladder, so a surgical consult wa s obtained. She denies any dysuria, hematuria, hematochezia, or melena. Denies any recent travellin g out of the country. Denies any family member sick at home. Patient describes pain in the epigastr ic area, radiating to the back, associated with nausea. Allergies: AMOXICILLIN, POTASSIUM. Medications: Pregabalin. Surgeries: Appendectomy, right leg surgery. Social History: She does not smoke. She does not drink alcohol. Review of Systems: 10 points otherwise unremarkable. Physical Examination: General: Patient is awake and alert. HEENT: Pupils are equal and reactive, anicteric. Neck: Supple. Chest: Clear. Heart: S1, S2. Abdomen: Epigastric and right upper quadrant tenderness with Cervantes sign positive. Breasts: Deferred. Pelvic: Deferred. Rectal: Deferred. Extremities: Good capillary refill. Diagnostic Data: Blood work shows WBC count of 8.5, hemoglobin of 14.1. INR of 0.89. Potassium is 4.0. Total bilirubin of 0.5. CAT scan of abdomen and pelvis: Distended gallbladder with thickening indicating cholecystitis. Abdominal ultrasound interpreted by Dr. Mcmillan, the same findings and c holelithiasis. Assessment: A 73-year-old patient with acute cholecystitis, symptomatic cholelithiasis. Benefits, a lternatives, and risks of laparoscopic, possible open cholecystectomy fully explained to the patient which include but are not limited to infection, bleeding, damage to adjacent structures, anesthesia c omplication, choledocholithiasis, bile leak, pancreatitis, MS, and even . She also understands this may not relieve her symptoms. She might need more than one surgical intervention. She prefers the surgery done during this admission. HM/MODL Voice ID: [id number] Report ID: [id number]
--- NOTE | 2019-04-27 21:53 | DS ---
Date of Discharge: 03/26/2019 Hospital Course: Patient was admitted to the hospital 03/24 with a tentative diagnosis of the acute cholecystitis. She was seen by Surgery and scheduled for a Lap-[place], which she underwent on 03/[address] Scott at which time a cholecystectomy was performed. Postoperatively, she was uncomfortable for the first couple hours and complained of significant nausea, had episode of vomiting. Once this passed, she felt much better and she was able to tolerate the diet by the next day and she was discha rged in good condition. A cardiac workup will also ensue due to the chest pain. This was negative a nd therefore the diagnosis and the surgery was performed. Final Diagnosis: Acute cholecystitis. Procedure: Laparoscopic cholecystectomy. HR/MODL Voice ID: [id number] Report ID: [id number]
== END 2019-03-26 14:17 | disposition home or self-care (01) ==
LOC: ER 11:29 → INTOOBSV 13:33 → ERHOLD 13:33 → 2ND 15:28 → UNDODISOB 03-25 14:16
PROVIDERS: ADMIT Family Medicine; ATTEND Family Medicine
PROC: 0FT44ZZ Resection of Gallbladder, Percutaneous Endoscopic Approach (ICD-10-PCS; principal; 2019-03-25 10:30)
DX: K80.00 Calculus of gallbladder with acute cholecystitis without obstruction (principal); Z88.0 Allergy status to penicillin
CPT/HCPCS: 96365; 96361; 93005; 93306; 85025 ×2; 80048 ×2; 36415; 83735; 85610; 80076; 88304; 81003; 84484 ×3; 83690; 83880; 71275; 74175; 71045; 76705; 96375; 99285; 47562; Q9967; J2704; J2250; J3010 ×2; J1170; G0378 ×5; J7030 ×6; J2405 ×3

== ENCOUNTER 2020-08-29 11:06 | Observation (INO) | payer OTHER ==
--- OUTSIDE RECORDS SUMMARY | 2020-08-29 11:13 | XMS REPORT | Continuity of Care Document ---
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 Errol jesse Lyles Diastolic (mm Hg) 2016-12-02 15:52:00 [facility] [place] Heart Rate 2016-12-02 15:52:00 [facility] Heart Rate 2016-12-02 12:07:00 [facility] Temperature Oral (F) 2016-12-02 12:07:00 98.2 F [facility] [place] Respitory Rate 2016-12-02 12:07:00 [facility] [place] Systolic (mm Hg) 2016-12-02 12:07:00 Errol [facility] Diastolic (mm Hg) 2016-12-02 12:07:00 [facility] [place] Temperature Oral (F) 2016-12-02 08:11:00 97.7 F [facility] [place] Systolic (mm Hg) 2016-12-02 08:11:00 Errol rial [facility] Diastolic (mm Hg) 2016-12-02 08:11:00 [facility] Respitory Rate 2016-12-02 08:11:00 [facility] [place] Heart Rate 2016-12-02 08:11:00 [facility] Weight 2016-11-24 15:15:00 [facility] Height 2016-11-24 15:15:00 162.56 cm [facility] [place] Height 2016-11-23 08:47:00 162.56 cm [facility] Weight 2016-11-23 08:47:00 [facility] [place] BMI Calculated 2016-11-23 08:47:00 [facility] Respitory Rate 2016-11-18 16:30:00 [facility] Systolic (mm Hg) 2016-11-18 16:30:00 Errol [facility] [place] Diastolic (mm Hg) 2016-11-18 16:30:00 [facility] Heart Rate 2016-11-18 16:30:00 [facility] Temperature Oral (F) 2016-11-18 16:30:00 98.5 F [facility] [place] Heart Rate 2016-11-18 13:00:00 [facility] Systolic (mm Hg) 2016-11-18 12:30:00 Errol [facility] [place] Diastolic (mm Hg) 2016-11-18 12:30:00 [facility] [place] Temperature Oral (F) 2016-11-18 12:30:00 98.4 F [facility] Heart Rate 2016-11-18 12:30:00 [facility] [place] Respitory Rate 2016-11-18 12:30:00 [facility] [place] Systolic (mm Hg) 2016-11-18 08:00:00 Errol molina [place] Diastolic (mm Hg) 2016-11-18 08:00:00 [facility] [place] Temperature Oral (F) 2016-11-18 08:00:00 99.1 F [facility] Respitory Rate 2016-11-18 08:00:00 [facility] [place] BMI Calculated 2016-11-14 03:28:00 [facility] Height 2016-11-14 03:28:00 162.56 cm [facility] [place] Weight 2016-11-14 03:28:00 [facility] [place] Weight 2016-11-14 01:57:00 [facility] BMI Calculated 2016-11-14 01:57:00 [facility] Height 2016-11-14 01:57:00 60 cm [facility] [place] Weight 2016-11-13 19:36:00 [facility] Procedures Procedure Date / Time Performing Clinician Source Performed [U] XRAY SHOULDER MIN 2 2017-03-09 00:00:00 [facility] LEFT [id number] Physicians [U] XRAY SHOULDER MIN 2 2017-01-31 00:00:00 [facility] LEFT [id number] Physicians [U] XRAY SHOULDER MIN 2 2016-12-26 00:00:00 [facility] LEFT [id number] Physicians Appendectomy 1952-02-05 00:00:00 [facility] bowman Debridement [facility] Irrigation of wound [facility] bowman Encounters Start End Encounter Admission Attending Care Care Encounter Source Date/Time Date/Time Type Type Clinicians Facility Department ID 2017-03-21 2017-03-21 [facility] [id number] Univers 11:15:00 11:15:00 t; WON MG ity o f ANDREW, M.D. [place] [facility] 2017-02-07 2017-02-07 [facility] [id number] Univers 11:15:00 11:15:00 t; JACEY CHANCE NP ity of [place], [place] [facility] 2017-01-03 2017-01-03 [facility] [id number] Univers 11:30:00 11:30:00 t; JACEY CHANCE NP at [facility] ity [place] [place] [facility] 2016-12-15 2016-12-15 Appointmen [facility] [id number] Univers 10:45:00 10:45:00 t; MD [facility] ity of [place] MD [facility]ION[facility] Physici ans 2016-12-13 2016-12-13 Appointmen [facility] [id number] Univers 11:00:00 11:00:00 t; WON MG ity o f ANDREW, M.D. [place] M.D. Physici ans 2016-11-22 2016-12-02 Outpatient Alejandro, [facility] [id number] 19:45:00 14:00:00 Serjio Santos 91 2016-11-13 2016-11-18 Outpatient Javier, [facility] [id number] 14:36:00 14:30:00 Stefani 00 [place] Results Test Description Test Time Test Comments Results Result [facility] e Comments [U] XRAY SHOULDER 2017-02-07 Images Univers ity of MIN 2 VWS LEFT 11:10:00 acquired, not [place] [id number] reported on Physicians this accession number. [U] XRAY SHOULDER 2017-01-03 Images Univers ity of MIN 2 VWS LEFT 11:18:00 acquired, not [place] [id number] reported on Physicians this accession number. Tobacco Use Screening 2016-12-15 16:45:00 Test Item Value Reference Range Interpretation Comme nts Completed (test code = Completed) DONE [facility] Physicians[U] XRAY SHOULDER MIN 2 VWS LEFT [id number] 10:39:00Images acquired, not reported on this accession number.[facility]iciansCHE[facility] [id number] 05:58:008.8[facility] HermannCHEM PANEL 2016-12-01 05:58:55466Rhznqvqz HermannCHEM COUZR2685-27-00 05:58:0023[facility] HermannCHEM VXAFN9283-27-69 05:58:0094[facility] HermannCHEM ZXBKU3655-45-09 05:58:000.59[facility] HermannCHEM DIBDH2192-50-08 05:58:004.7[facility] HermannCHEM CLHGX3855-77-98 05:58:0016[facility] HermannCHEM DVELU8719-17-39 05:58:0077 [facility] HermannCHEM IOPBA4679-78-83 05:58:72953Raaunbjo HermannCHEM PANEL 2016-12-01 05:58:0016.7[facility] NtooshoIKBJPDBSYI8057-28-07 05:58:006.6[facility] HwmezxrEMMXLPMYQO7022-69-38 05:58:41301Mcmgvjcr YekblqdVVBQEWRVPY2361-75-77 05:58:0015.2[facility] OqemrhdXYMYISHSBH4971-38-29 05:58:0098.5[facility] MCPWJHWOKE4934-13-68 05:58:0033.5[facility] QletkdmEYFYJPPUKA6249-32-09 05:58:00 Test Item Value Reference Range Interpretation Comments MCH (test code = MCH) 33.0 pg 27.0-31.0 [facility] AasgtxiQJEEDSBOYB3206-25-55 05:58:0029.6[facility] HermannHEMATOLOGY 2016-12-01 05:58:009.9[facility] QfvrfdsSXHCGEXDCZ5567-13-49 05:58:003.00[facility] ZnbibqyUAMMJQOYXN4839-00-15 05:58:006.6[facility] KtyrdrlNRJEWWDENM9882-79-94 05:58:000.0[facility] VxyopzcCYBWNXHEDJ4381-78-33 05:58:00Normal (12/01/16 12:58 AM)[facility] RfonlxtQFETKRTVMM3678-99-99 05:58:00See Note 1(12/01/16 12:58 AM) [facility] StmtapdUHMBBTPDFU0151-50-77 05:58:001.0[facility] HermannHEMATOLOGY 2016-12-01 05:58:001.0[facility] SayfqymIDEDJYLOQG7448-82-60 05:58:001.0[facility] UspnxkoRYBUEYGDBQ0444-44-20 05:58:002.0[facility] VfzhuvvQKBAGCNXXW1879-97-47 05:58:0020.0[facility] LjqykxrAUHQCRRKLD9411-71-02 05:58:0016.0[facility] [place] ONNDMPFCJM6264-76-84 05:58:000.1[facility] ZnoiiohUBLUPPWNFW0746-32-43 05:58:000.1 [facility] AenbjgfFZTLHJEKPE3307-65-76 05:58:001.1[facility] HermannHEMATOLOGY 2016-12-01 05:58:004.0[facility] IkgerfvJAVHEUNGPB4885-55-19 05:58:001.3[facility] TjzlylpMULFBLQQHH8668-16-13 05:58:0059.0[facility] HermannBLOOD BANK RESULTS 2016-11-27 10:35:00Negative (11/27/16 5:35 AM)[facility] HermannHEMATOLOGY 2016-11-26 08:55:001.4[facility] FiosqftGBQDIHQQIP3672-21-10 08:55:000.1[facility] EblrxnjKQMASDUENM0221-18-58 08:55:000.1[facility] MbvftoqQCYKJCVOJX7637-29-10 08:55:00 Test Item Value Reference Range Interpretation Comments MCH (test code = MCH) 33.1 pg 27.0-31.0 [facility] OpvxmhpPNFFLSUCND1647-65-59 08:55:0023.7[facility] HermannHEMATOLOGY 2016-11-26 08:55:0099.5[facility] RefleypDAUZEOIVVU0027-78-18 08:55:0014.5[facility] PdbivglDAUHQQXTTD9480-94-97 08:55:007.1[facility] SplipsqETSKKZMESA5288-80-21 08:55:0033.2[facility] GixgsmhAPMHSDFTIN7204-35-57 08:55:29541Tshfhuql [facility] OHXUKVWREO3420-35-00 08:55:002.38[facility] YsrzmjiNINODWOKVX9147-58-82 08:55:00 7.9[facility] FrqiysjMWDTVOTDHH7799-86-69 08:55:005.9[facility] HermannCHEM PANEL 2016-11-26 08:55:0095[facility] HermannCHEM WGCLD4235-55-03 08:55:0013[facility] HermannCHEM SHAKG6165-50-51 08:55:0081[facility] HermannCHEM FZDUJ1071-98-93 08:55:0025[facility] HermannCHEM DPBSE8382-59-11 08:55:25132Fvngdqug HermannCHEM TNBPV4171-22-15 08:55:007.9[facility] HermannCHEM GOBQC7560-11-77 08:55:000.56 [facility] HermannCHEM EGTTH7836-00-35 08:55:004.6[facility] HermannCHEM PANEL 2016-11-26 08:55:43090Jarkguwt HermannCHEM NYWZV7201-38-39 08:55:0012.6[facility] HermannCHEM IOHZZ0095-33-89 08:55:002.4[facility] HermannCHEM TPLNT7564-77-60 08:55:003.5[facility] OrpsiszLVQAYPJUCF7350-92-75 08:55:0060.5[facility] ZCWGMRTTVO3812-63-73 08:55:0012.7[facility] FpehjafVHECXOODNC4585-89-41 08:55:00 23.5[facility] HyqylwwCNAONXBBMN2208-63-17 08:55:000.9[facility] HermannHEMATOLOGY 2016-11-26 08:55:002.4[facility] IzrocolSHASHNCAFH3800-73-16 08:55:003.6[facility] PfgujzaAHVTIRPVIR9944-11-48 08:55:000.7[facility] HermannCHEM CRUSM7866-82-29 09:55:0096[facility] HermannCHEM VLLYI9394-67-62 09:55:0011.7[facility] HermannCHEM MBHXI2725-83-71 09:55:008.3[facility] HermannCHEM TUXVI5743-84-76 09:55:004.7 [facility] HermannCHEM KNBBR0655-27-35 09:55:0024[facility] HermannCHEM PANEL 2016-11-25 09:55:73712Dlauypgt HermannCHEM CIKIB3640-35-61 09:55:70744Vgtvxhpe HermannCHEM OBUON2038-22-45 09:55:000.55[facility] HermannCHEM JBRUY4002-25-36 09:55:0082[facility] HermannCHEM EWTAS0015-20-31 09:55:0011[facility] LQBHUGULGF4703-94-60 09:55:0034.1[facility] MphkbrxOPSNKIWBFF9846-66-68 09:55:00 14.2[facility] GepfrgpJCMPXFPIZP1241-50-00 09:55:0098.2[facility] HermannHEMATOLOGY 2016-11-25 09:55:00 Test Item Value Reference Range Interpretation Comments MCH (test code = MCH) 33.5 pg 27.0-31.0 [facility] XtdpuaxQSXSPNSBNX0476-34-38 09:55:17582Axvrfsih HermannHEMATOLOGY 2016-11-25 09:55:007.0[facility] SynfcytXNNWCMOOYH5934-60-70 09:55:008.0[facility] WwdyezuOCJZFLUGXX3102-17-13 09:55:0023.6[facility] RiwbdmgWOVCQDXPLU2332-34-39 09:55:006.9[facility] ZondskhFDAKBDZTHQ9172-46-95 09:55:002.40[facility] GJZGQDCXEV2966-12-36 09:55:000.1[facility] FhtqrlbBLDHAETYYT4612-27-48 09:55:00 63.3[facility] SyynywkMRKARPUAHE3941-60-19 09:55:0013.4[facility] HermannHEMATOLOGY 2016-11-25 09:55:001.9[facility] NdlzphbFTKQWOCGYM9028-71-38 09:55:0020.7[facility] XgumnqpVKCKNGXHCX6057-95-23 09:55:001.4[facility] NfernshUSMLVCUNTS6244-66-45 09:55:000.1[facility] TndncvjIETZBNDFDJ6613-23-04 09:55:000.9[facility] [place] SEVQNZFMTT1078-22-75 09:55:000.7[facility] LgbssyfQJVGSVDVXO5469-47-67 09:55:004.4 [facility] FmunffjZFLEIVPTBK1378-86-98 02:14:000.24[facility] HermannTOXICOLOGY 2016-11-24 09:56:0011.5[facility] HermannBLOOD BANK YAHLZFH3959-65-40 04:51:00 Negative (11/22/16 11:51 PM)[facility] NuodsqbAAWMTRQDDZ5601-71-78 04:51:009.4 [facility] HermannCHEM NXJNX9501-50-40 02:47:000.9[facility] HermannCHEM PANEL 2016-11-18 06:04:0098[facility] HermannCHEM IAANV7630-44-02 06:04:000.51[facility] HermannCHEM VOQHY2201-69-22 06:04:76505Qtasveez HermannCHEM MEBFF5406-95-04 06:04:99371Nmtdxtyr HermannCHEM KAGLU6621-82-91 06:04:0027[facility] HermannCHEM YQOMR1374-19-95 06:04:008.4[facility] HermannCHEM BQJOD4344-05-94 06:04:004.3 [facility] HermannCHEM TITHV7120-29-48 06:04:0012[facility] HermannCHEM PANEL 2016-11-18 06:04:0097[facility] HermannCHEM GUUUF3041-67-77 06:04:0011.3[facility] HxlbcfkQRRKVCOFGE4498-52-46 06:04:000.42[facility] GvnvrwcAWPXSAXXDA9841-68-76 06:04:002.57[facility] VhdcyurOAGUJIZUXV1181-92-80 06:04:0013.9[facility] QUVCFYYITT8181-84-24 06:04:008.7[facility] UcbfmwoSEISMGJXKJ3831-94-25 06:04:71696 [facility] QyfpgjpNNBSWJTVZV5225-11-03 06:04:0034.6[facility] HermannHEMATOLOGY 2016-11-18 06:04:0097.4[facility] IdqgsuyDQARMGGVAV7135-84-03 06:04:0025.1[facility] GceyluiCQZCYWJBDZ2763-98-89 06:04:008.7[facility] VwczbquLMXVARTGQE7334-74-31 06:04:00 Test Item Value Reference Range Interpretation Comments MCH (test code = MCH) 33.7 pg 27.0-31.0 [facility] FznggkhUHKOOWQOZS5720-75-10 06:04:006.8[facility] HermannHEMATOLOGY 2016-11-18 06:04:001.4[facility] MmomqnyRYLGVCDNLC6580-41-32 06:04:0010.5[facility] TdcdnxfRHMDCKFARB7872-51-65 06:04:0024.1[facility] XnzamijDBGYYBDSAA0490-56-66 06:04:0063.6[facility] RnahazpYYLODUPEST7447-70-83 06:04:000.1[facility] [place] DPUWBXSHDY6932-50-31 06:04:000.7[facility] QnvnpesIVAQHVSLJC1815-96-31 06:04:000.4 [facility] MxrqlrmLOSMVOCGEF5125-00-00 06:04:004.3[facility] HermannHEMATOLOGY 2016-11-18 06:04:001.6[facility] HfdazvqHWEUTWNLXAUP9342-67-04 06:19:0010.6 [facility] FjacqtkLTOOMDRYVYFY5058-48-16 06:19:003.6[facility] HermannELECTROLYTES 2016-11-17 06:19:47274Agfztzxa WdysaudUVQMZXPPPYTL1612-90-23 06:19:92642Cbqwhwlg EahpnlxWJTNXBRUZYVQ4536-49-68 06:19:0095[facility] WjyaiqoMLTISEMBEYUN1500-28-90 06:19:000.56[facility] TpgomdzFESZCZADGCHN8000-07-68 06:19:0026[facility] [place] QRNDAKNCNCBQ0855-89-29 06:19:0012[facility] UmxinjbBMXTJWHWLXAE8033-55-44 06:19:00 8.3[facility] RikksgtATTDZDCZANIC5888-94-79 06:19:59420Sifjdzre HermannHEMATOLOGY 2016-11-17 06:19:002.36[facility] JrlsmbgBXGVZKTSSP9331-96-04 06:19:008.5[facility] NsejybnWBPUGHAQIO1749-68-00 06:19:0097.8[facility] YbavvlwGPWLIFNNZH6026-47-37 06:19:0023.1[facility] PvcbehpMWOFYXMOXB5986-57-12 06:19:007.9[facility] TECKREFHXP8392-91-21 06:19:21518Xeqyrkqc YbdhhfuNRJNCRZDMZ1772-95-00 06:19:00 14.0[facility] WpxerdnEYCBVWJEOU0051-76-02 06:19:0034.1[facility] HermannHEMATOLOGY 2016-11-17 06:19:00 Test Item Value Reference Range Interpretation Comments MCH (test code = MCH) 33.4 pg 27.0-31.0 [facility] AjvgkomLOHTJOWLLW1237-17-45 06:19:008.5[facility] HermannHEMATOLOGY 2016-11-17 06:19:000.35[facility] HmxiekvOISVTDWVQO7843-34-86 06:19:000.1[facility] FmmtafxTCTSLGNOVU4353-33-39 06:19:008.0[facility] XmvuhgsKVGXINLVIB0886-59-99 06:19:000.6[facility] MmwjtxvQNLJWUXGVW0249-57-94 06:19:0014.0[facility] [place] QTUXRGVINZ8112-23-27 06:19:001.2[facility] ZksayszQVCBHOCNQP3357-79-86 06:19:000.7 [facility] ZueonybINNQWDUWDS2249-04-25 06:19:006.5[facility] HermannHEMATOLOGY 2016-11-17 06:19:000.1[facility] PbaacijWFENVRIFYN9100-76-16 06:19:0077.3[facility] QqipqebTQYQHCMHFE7283-48-13 17:51:0013.8[facility] QnherjsLSYDUPSPUC0437-10-04 17:51:008.6[facility] VtpinvaSFBZPLUHQY7555-40-15 17:51:06987Ochdcfnl [facility] HROSYJXQFT5976-92-85 17:51:0034.6[facility] EkkijscXFDZXBHFEI3179-61-53 17:51:00 Test Item Value Reference Range Interpretation Comments MCH (test code = MCH) 33.4 pg 27.0-31.0 [facility] RkkipvfANYGUUAZAS1518-22-44 17:51:002.52[facility] HermannHEMATOLOGY 2016-11-16 17:51:008.4[facility] DprlqjhYGVRUFUKJE5745-68-26 17:51:0024.3[facility] SpjqixvSTPUCGSFUL1500-31-42 17:51:0096.5[facility] IyptxfeUPIFGRJJKE6821-40-48 17:51:008.3[facility] OojsyyoHCRHJALJBO6103-18-30 17:51:000.7[facility] [place] FCXSDHFWGR8843-34-89 17:51:001.0[facility] RmmfngbKCPSATBEPS5362-73-52 17:51:008.9 [facility] MnzpyqxRHIJACDIDS1735-86-33 17:51:0011.8[facility] HermannHEMATOLOGY 2016-11-16 17:51:000.2[facility] PzdrziyMTKBILXBMF7580-20-14 17:51:006.5[facility] NddohghKPPEPKVVHG8616-20-79 17:51:000.1[facility] XqkioqyPIUQAGHJVM3710-70-08 17:51:0079.0[facility] HermannPARATHYROID DYXFLLC3031-41-24 17:51:001.12[facility] HermannPARATHYROID JKLOUGB2542-58-13 17:51:001.12[facility] HermannCHEM PANEL 2016-11-16 09:22:0098[facility] HermannCHEM IJNVO7470-52-86 09:22:0020[facility] HermannCHEM RNCGH4387-05-89 09:22:007.5[facility] HermannCHEM ADAIY0584-36-03 09:22:004.3[facility] HermannCHEM JGCIB2581-22-55 09:22:05089Gytyxprr HermannCHEM ZGJQF6795-22-03 09:22:0010[facility] HermannCHEM YRRGD0682-08-70 09:22:000.52 [facility] HermannCHEM KLANW6357-32-50 09:22:70784Bmnnvxzt HermannCHEM PANEL 2016-11-16 09:22:19483Yiolcdsc HermannCHEM BXISZ0553-88-30 09:22:0018.3[facility] HermannBLOOD BANK EKVDSOA1241-68-43 07:49:00Product available (11/14/16 2:49 AM) [facility]annBLOOD BANK RWWKQOQ3881-66-86 07:49:00Product available (11/14/16 2:49 AM)[facility] HermannCHEM YNTYZ4587-80-60 07:02:003.3[facility] HermannDRUG XKTONR2918-23-68 02:33:00Negative *NA*(11/13/16 9:33 PM)[facility] HermannDRUG YSUMQM0644-23-07 02:33:00Negative *NA*(11/13/16 9:33 PM)[facility] HermannDRUG XLBPQF5302-46-62 02:33:00See Note (11/13/16 9:33 PM)[facility] HermannDRUG SCREEN 2016-11-14 02:33:00Positive *ABN*(11/13/16 9:33 PM)[facility] HermannDRUG SCREEN 2016-11-14 02:33:00Negative *NA*(11/13/16 9:33 PM)[facility] HermannDRUG SCREEN 2016-11-14 02:33:00Negative *NA*(11/13/16 9:33 PM)[facility] HermannDRUG SCREEN 2016-11-14 02:33:00Positive *ABN*(11/13/16 9:33 PM)[facility] HermannDRUG SCREEN 2016-11-14 02:33:00Negative *NA*(11/13/16 9:33 PM)[facility] HermannHEMATOLOGY 2016-11-14 02:33:00 Test Item Value Reference Range Interpretation Comments K-time (test code = K-time) 4.4 min 1.0-3.0 [facility] YmmqxqxTPHJHFYVYG8483-93-09 02:33:00 Test Item Value Reference Range Interpretation Comments Max Amp (test code = Max Amp) 46.7 mm 50.0-70.0 [facility] GrdijiuQBCQSEPXOO4343-49-90 02:33:00 Test Item Value Reference Range Interpretation Comments Angle (test code = Angle) 45.5 degrees 53.0-72.0 [facility] WkljeysWVQKQQJZHC8507-90-15 02:33:00 Test Item Value Reference Range Interpretation Comments R-time (test code = R-time) 2.6 min 5.0-10.0 [facility] DerssyrNYEZRMWZBG1248-89-76 02:33:00-2.0[facility] HermannHEMATOLOGY 2016-11-14 02:33:004.4[facility] YmtmahwUISHJPAUJR1372-06-82 02:33:00See Note (11/13/16 9:33 PM)[facility] EecqajtSRTHZSBRUG6887-85-36 02:33:000.0[facility] HermannURINE AND PQILB9045-33-66 02:33:00Negative (11/13/16 9:33 PM)[facility]annURINE AND MCGTH3872-80-95 02:33:00Negative (11/13/16 9:33 PM)[facility]annURINE AND DDZOQ9368-30-62 02:33:00Negative *NA*(11/13/16 9:33 PM)[facility]annURINE AND RJBNP2039-81-58 02:33:001[facility] HermannURINE AND STOOL 2016-11-14 02:33:00>=1.050 *ABN*(11/13/16 9:33 PM)[facility]annURINE AND FMGBD4092-98-37 02:33:005.5[facility] HermannURINE AND NJGWF8984-31-16 02:33:00 Yellow *NA*(11/13/16 9:33 PM)[facility]annURINE AND GCMYX5506-53-73 02:33:00 Clear (11/13/16 9:33 PM)[facility]annUR[facility] AND AQIJT2029-73-20 02:33:00 Negative (11/13/16 9:33 PM)[facility]annUR[facility] AND LLYFA6942-92-95 02:33:001 [facility] HermannBLOOD BANK CPYTQAC9176-26-74 19:59:09Negative (11/13/16 2:59 PM) [facility] HermannCHEM BKCFG6918-16-44 19:46:292.8[facility] HermannENDOCRINOLOGY 2016-11-13 19:46:29Negative *NA*(11/13/16 2:46 PM)[facility] HermannHEMATOLOGY 2016-11-13 19:46:29 Test Item Value Reference Range Interpretation Comments Split Point Rapid (test code = Split 0.6 min Point Rapid) [facility] IxtmfqfNOBULBEGXI2944-34-51 19:46:29 Test Item Value Reference Range Interpretation Comments K-time Rapid (test code = K-time 1.8 min 0.6-2.3 Rapid) [facility] HifndpbRUNDFJXJJK6072-87-78 19:46:29 Test Item Value Reference Range Interpretation Comments R-time Rapid (test code = R-time 0.7 min 0.4-0.7 Rapid) [facility]BgdnclaHDWICOBNVC1417-09-19 19:46:29 Test Item Value Reference Range Interpretation Comments Max Amplitude Rapid (test code = Max 56 mm 52-71 Amplitude Rapid) [facility]valeTsudeifZXPORQCGWQ6471-64-62 19:46:29 Test Item Value Reference Range Interpretation Comments Angle Rapid (test code = Angle 72 degrees 64-80 Rapid) [facility]valeZxbwdjqEACNKPQNKC9220-26-81 19:46:290.0[facility] 2016-11-13 19:46:296.3[facility] VnqspkjKDCHMFHVKB2789-12-56 19:46:29 Test Item Value Reference Range Interpretation Comments ACT (TEG) Rapid (test code = ACT (TEG) 113 s 86-118 Rapid) [facility]
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
[2020-08-29] MEDS ORDERED: FENTANYL CITR 100 MCG/2 ML ONE (13:18)
[2020-08-29] MEDS ORDERED: NA CHLORIDE 0.9% 1,000 ML ONE ×2 (13:18→17:09)
--- NOTE | 2020-08-29 13:56 | RAD REPORT ---
EXAM DESCRIPTION: RAD - Hand Right 3 View - 08/29/2020 12:17 pm CLINICAL HISTORY: PAIN COMPARISON: Hand Right 3 View dated 12/07/2015 FINDINGS: No right hand fractures identified. Advanced degenerative changes are present the base of the thumb as well as at the second distal interphalangeal joint. IMPRESSION: No right hand fracture identified.
--- NOTE | 2020-08-29 13:59 | RAD REPORT ---
EXAM DESCRIPTION: RAD - Shoulder Left 2 View - 08/29/2020 12:17 pm CLINICAL HISTORY: PAIN COMPARISON: No comparisons FINDINGS: Single view submitted. No left shoulder fracture identified. Mild left glenohumeral and AC joint degenerative changes. IMPRESSION: No left shoulder fracture identified.
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
[2020-08-29 16:14] VITALS: BMI 20.5
[2020-08-29 16:28] LABS: Absolute Lymphocytes (CBC) 1.1 K/uL (0.7-4.9); Basophils % 0.2 % (0-1.3); Hematocrit 38.5 % (36.0-45.0); Lymphocytes % 10.6 % (15.3-44.8); MPV 8.1 fL (7.6-11.3); RBC Red Blood Cell Count 4.11 M/uL (3.86-4.86)
[2020-08-29] MEDS ORDERED: ONDANSETRON 4 MG/2 ML VIAL IV PRN (16:36)
[2020-08-29] MEDS ORDERED: ACETAMINOPHEN 500 MG TAB PO PRN (16:36)
[2020-08-29] MEDS ORDERED: MORPHINE 2 MG/ML SYR IV PRN (16:36)
[2020-08-29] MEDS ORDERED: NA CHLORIDE 0.9% 1,000 ML IV SCH (16:36)
[2020-08-29 16:47] LABS: ALT/SGPT 32 U/L (12-78); AST/SGOT 29 U/L (15-37); Albumin 3.5 g/dL (3.4-5.0); Alkaline Phosphatase 97 U/L (45-117); BUN Blood Urea Nitrogen 16 mg/dL (7-18); Bicarbonate 23 mmol/L (21-32); Bilirubin Total 0.3 mg/dL (0.2-1.0); CKMB Creatine Kinase MB 4.2 ng/mL (1.0-3.6); Creatine Phosphokinase 186 U/L (26-192); Glucose Level 93 mg/dL (74-106); Potassium 3.7 mmol/L (3.5-5.1); Protein, Total 6.3 g/dL (6.4-8.2); Sodium Level 140 mmol/L (136-145); Troponin I < 0.02 ng/mL (0.0-0.045)
[2020-08-29] MEDS ORDERED: POTASSIUM CL SA 10 MEQ TAB PO ONE ×2 (16:54→17:41)
[2020-08-29] MEDS: HYDROCODONE/APAP 7.5/325 MG TAB PO PRN (17:39)
[2020-08-29 17:48] LABS: Urine Appearance CLEAR (Clear); Urine Bilirubin NEGATIVE (Negative); Urine Blood NEGATIVE (Negative); Urine Color YELLOW (Yellow); Urine Glucose NEGATIVE (Negative); Urine Protein NEGATIVE (Negative); Urine Specific Gravity 1.015 (1.005-1.030); Urine Urobilinogen 0.2 mg/dL (0.2-1.0)
[2020-08-29] MEDS ORDERED: HYDROCODONE/APAP 7.5/325 MG TAB ONE (18:01)
[2020-08-29 18:39] LABS: Urine Bacteria >50 /HPF (<20); Urine RBC <5 /HPF (NONE SEEN)
[2020-08-29 22:17] LABS: CKMB Creatine Kinase MB 3.4 ng/mL (1.0-3.6); Creatine Phosphokinase 211 U/L (26-192); Troponin I < 0.02 ng/mL (0.0-0.045)
[2020-08-30 05:14] LABS: Absolute Lymphocytes (CBC) 1.6 K/uL (0.7-4.9); Basophils % 0.5 % (0-1.3); Hematocrit 37.2 % (36.0-45.0); Lymphocytes % 23.1 % (15.3-44.8); MPV 8.4 fL (7.6-11.3); RBC Red Blood Cell Count 3.98 M/uL (3.86-4.86)
[2020-08-30 05:33] LABS: Magnesium 2.2 mg/dL (1.8-2.4)
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
[2020-08-30] MEDS: ENOXAPARIN 40 MG/0.4 ML SQ SCH (08:56)
[2020-08-30] MEDS: TRAMADOL HCL 50 MG TAB PO PRN ×2 (08:56→14:10)
[2020-08-30] MEDS ORDERED: ENOXAPARIN 40 MG/0.4 ML SQ ONE (09:17)
[2020-08-30] MEDS ORDERED: TRAMADOL HCL 50 MG TAB ONE ×2 (09:18→14:32)
--- NOTE | 2020-08-30 09:20 | RAD REPORT ---
EXAM DESCRIPTION: RAD - Chest Single View - 08/30/2020 6:24 am CLINICAL HISTORY: Follow up Fall, Syncope, Rib fractures Chest pain. COMPARISON: Chest Single View dated 03/24/2019; Chest Single View dated 11/22/2016 FINDINGS: Portable technique limits examination quality. Multiple mildly displaced left sided lateral mid rib fractures are noted. No pneumothorax is seen. Sm all left pleural effusion.The lungs are otherwise grossly clear. The heart is upper limit normal in s ize.
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
[2020-08-30] MEDS: LIDOCAINE 4% PATCH TOP SCH (17:30)
[2020-08-30] MEDS ORDERED: WATER FOR INJ,STERILE 10 ML ONE (17:40)
[2020-08-30] MEDS ORDERED: HYDROCORTISONE SUC 100 MG INJ ONE (17:40)
[2020-08-30] MEDS ORDERED: LIDOCAINE 4% PATCH ONE (17:50)
[2020-08-30 17:56] LABS: Absolute Lymphocytes (CBC) 1.5 K/uL (0.7-4.9); Basophils % 0.2 % (0-1.3); Hematocrit 39.4 % (36.0-45.0); Lymphocytes % 25.1 % (15.3-44.8); MPV 7.9 fL (7.6-11.3)
[2020-08-30] MEDS ORDERED: HYDROCORTISONE SUC 100 MG INJ IV ONE (18:00)
[2020-08-30] MEDS ORDERED: WATER FOR INJ,STERILE 10 ML IV ONE (18:00)
[2020-08-31] MEDS: HYDROCODONE/APAP 7.5/325 MG TAB PO PRN (02:13)
[2020-08-31] MEDS ORDERED: HYDROCODONE/APAP 7.5/325 MG TAB ONE (02:35)
[2020-08-31 05:37] LABS: Absolute Lymphocytes (CBC) 1.8 K/uL (0.7-4.9); Basophils % 0.4 % (0-1.3); Hematocrit 35.6 % (36.0-45.0); Lymphocytes % 25.6 % (15.3-44.8); MPV 8.3 fL (7.6-11.3); RBC Red Blood Cell Count 3.84 M/uL (3.86-4.86)
[2020-08-31 05:41] VITALS: TEMP 97.7
[2020-08-31 05:52] LABS: ALT/SGPT 26 U/L (12-78); AST/SGOT 23 U/L (15-37); Albumin 3.3 g/dL (3.4-5.0); Alkaline Phosphatase 91 U/L (45-117); BUN Blood Urea Nitrogen 10 mg/dL (7-18); Bicarbonate 26 mmol/L (21-32); Bilirubin Total 0.4 mg/dL (0.2-1.0); Glucose Level 83 mg/dL (74-106); Potassium 3.6 mmol/L (3.5-5.1); Protein, Total 6.2 g/dL (6.4-8.2); Sodium Level 139 mmol/L (136-145)
--- NOTE | 2020-08-31 07:03 | RAD REPORT ---
EXAM DESCRIPTION: RAD - Chest Single View - 08/31/2020 5:28 am CLINICAL HISTORY: pneumonia COMPARISON: August 30 TECHNIQUE: AP portable chest image was obtained 08/31/2020 5:28 am . FINDINGS: Lung volumes are low. Small left pleural effusion still present. Left base stranding is be lieved to be atelectasis. Heart and vasculature are normal. No pneumothorax has developed. Left-sided rib fractures again noted. No acute aortic findings suspected. IMPRESSION: Stable small left pleural fluid collection left base atelectasis. No pneumothorax has developed.
[2020-08-31] MEDS: LIDOCAINE 4% PATCH TOP SCH (08:20)
[2020-08-31] MEDS: ENOXAPARIN 40 MG/0.4 ML SQ SCH (08:20)
--- NOTE | 2020-08-31 08:24 | P.PN ---
Subjective Date of Service: 08/30/20 Subjective: No new changes, No C/O voiced, Improving Review of Systems 10-point ROS is otherwise unremarkable Physical Examination - Vital Signs Temperature: 97.7 F Blood Pressure: 131/62 Pulse: 87 Respirations: 18 Pulse Ox (%): 95 - Physical Exam General: Alert, In no apparent distress, Oriented x3 Respiratory: Clear to auscultation bilaterally, Normal air movement Cardiovascular: Regular rate/rhythm, Normal S1 S2, No murmurs Gastrointestinal: Normal bowel sounds, Soft and benign, Non-distended, No tenderness Musculoskeletal: No clubbing, No swelling, No tenderness Neurological: Sensation intact, Cranial nerves 3-12 intact - Studies Medications List Reviewed: Yes Assessment & Plan - Problems (Diagnosis) (1) Fall Current Visit: Yes Status: Acute (2) Left rib fracture Current Visit: Yes Status: Acute (3) Pleural effusion, left Current Visit: Yes Status: Acute - Plan Plan: 1. Rule out hemothorax and monitor H&H 2. Repeat chest x-ray in a.m. 3. Pain control 4. Antibiotics 5. GI and DVT prophylaxis Discharge Plan: Home Plan to discharge in: Greater than 2 days - Advance Directives Does patient have a Living Will: No Does patient have a Durable POA for Healthcare: Yes - Code Status/Comfort Care Code Status Assessed: No Code Status: Full Code Critical Care: No Time Spent Managing PTS Care (In Minutes): 35
[2020-08-31] MEDS ORDERED: ENOXAPARIN 40 MG/0.4 ML SQ ONE (08:40)
[2020-08-31] MEDS ORDERED: POTASSIUM 25 MEQ EFFERV TAB ONE (08:40)
[2020-08-31] MEDS ORDERED: LIDOCAINE 4% PATCH ONE (08:40)
[2020-08-31] MEDS ORDERED: POTASSIUM 25 MEQ EFFERV TAB PO ONE (09:00)
[2020-08-31] MEDS ORDERED: NORETHINDRONE AC ETH ESTRADIOL PO SCH (09:15)
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
[2020-08-31] MEDS ORDERED: NA CHLORIDE 0.9% 1,000 ML IV SCH (10:00)
[2020-08-31 10:37] VITALS: BP 126/69
[2020-08-31 11:09] VITALS: O2SAT 95
[2020-08-31] MEDS ORDERED: KETOROLAC 30 MG/ML INJ ONE (12:16)
[2020-08-31] MEDS ORDERED: HYDROMORPHONE HCL 1 MG/ML INJ ONE (12:16)
[2020-08-31] MEDS ORDERED: NA CHLORIDE 0.9% 1,000 ML ONE (12:16)
--- NOTE | 2020-08-31 12:40 | EKG ---
Test Date: 2020-08-29 Test Time: 18:33:24 Catalog Librarian: MEASUREMENT RESULTS: Intervals: Rate: 82 ND: 120 QRSD: 68 QT: 372 QTc: [address] [place] [address]: P: 49 ND: 120 QRS: 59 T: 64 INTERPRETIVE STATEMENTS: Sinus rhythm with premature supraventricular complexes Possible Left atrial enlargement Borderline ECG Compared to ECG 08/29/2020 18:28:27 Atrial premature complex(es) now present Electronically Signed On 08-31-20 12:37:48 CDT by Pan Mallory
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
[2020-09-01] MEDS ORDERED: LACTOBACILLUS/ACIDOPHILUS TAB PO SCH (09:00)
[2020-09-01] MEDS ORDERED: MELOXICAM 7.5 MG TAB PO SCH (09:00)
[2020-09-01] MEDS ORDERED: VITAMIN D 1000 UNIT TAB PO SCH (09:00)
[2020-09-01] MEDS ORDERED: ASPIRIN 81 MG CHEWABLE TABLET PO SCH (09:00)
[2020-09-01] MEDS ORDERED: MULTIVITAMIN TAB PO SCH (09:00)
== END 2020-08-31 12:13 | disposition home or self-care (01) ==
LOC: ER 11:06 → ERHOLD 14:38
PROVIDERS: ADMIT Family Medicine; ATTEND Hospitalist
DX: S06.0X9A Concussion with loss of consciousness of unspecified duration, initial encounter (principal); S22.42XA Multiple fractures of ribs, left side, initial encounter for closed fracture; S60.221A Contusion of right hand, initial encounter; J90 Pleural effusion, not elsewhere classified; S40.012A Contusion of left shoulder, initial encounter; V18.4XXA Pedal cycle driver injured in noncollision transport accident in traffic accident, initial encounter
CPT/HCPCS: 96361; 93005 ×2; 87088; 85025 ×4; 81001; 87086; 80048; 36415 ×2; 83735 ×2; 82550 ×2; 84484 ×2; 82553 ×2; 80053 ×2; 70450 ×2; 71250; 72125; 71045 ×2; 73130; 73030; 97116; 97161; 94010; 96374; 99285; J1650 ×2; J3010; J1170; J7030 ×3; J1720; G0378 ×4; G0390

== ENCOUNTER 2023-09-05 10:02 | Emergency (ER) | payer OTHER ==
[2023-09-05] MEDS ORDERED: methocarbamoL 750 MG TAB ONE (12:07)
[2023-09-05] MEDS ORDERED: KETOROLAC 30 MG/ML INJ ONE (12:07)
[2023-09-05] MEDS ORDERED: LIDOCAINE 4% PATCH ONE (12:07)
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
[2023-09-05 18:13] VITALS: BP 144/61; O2SAT 100
== END 2023-09-05 14:43 | disposition home or self-care (01) ==
LOC: ER 10:02
DX: M54.17 Radiculopathy, lumbosacral region (principal); W01.0XXA Fall on same level from slipping, tripping and stumbling without subsequent striking against object, initial encounter
CPT/HCPCS: 72131; J2001; 96372; 99284